=== PATIENT | male | born 1965 | race Caucasian/White ===

== ENCOUNTER 2017-07-17 06:18 | Day surgery (SDC) | payer OTHER ==
[2017-07-16 11:05] VITALS: BMI 33.2
--- NOTE | 2017-07-17 07:45 | HP ---
SHORT STAY HISTORY AND PHYSICAL DATE OF ADMISSION: 07/17/2017 HISTORY OF PRESENT ILLNESS: This is a 52-year-old male with history of colon polyps. The patient had a colonoscopy in 2017 and was found to have multiple large sessile polyps. . Colon polyps with high grade dysplasia. The patient comes in for colonoscopy because of the multiple colo n polyps and also showing high grade dysplasia . ALLERGIES: PENICILLIN. MEDICAL ILLNESSES: 1. Vitamin D deficiency. 2. Hyperlipidemia. 3. Seizure disorder. PHYSICAL EXAMINATION: VITAL SIGNS: Pulse is 70, blood pressure 130/80. HEENT: Conjunctivae clear. CARDIOVASCULAR SYSTEM AND LUNGS: Within normal limits. ABDOMEN: Soft to palpate. No organomegaly. No tenderness. No masses. ADMITTING DIAGNOSIS: Multiple colon polyps. PLAN: Colonoscopy.
--- NOTE | 2017-07-17 15:06 | OP ---
DATE OF SURGERY: 07/17/2017 OPERATIVE PROCEDURE: Colonoscopy with polypectomy. PREOPERATIVE DIAGNOSIS: A 52-year-old male with previous colonoscopy with polypectomy in 05/2016. The patient came in for a colonoscopy at that time for colon cancer screening. He was found to have multiple large sessile polyps in the colon, which were removed. One of the polyps was a anna lous adenoma. High grade dysplasia. The patient was brought back for a second-look colonoscopy, bec ause of the multiple large colon polyps. POSTOPERATIVE DIAGNOSES: 1. Hemorrhoids. 2. Sessile descending colon polyp, small. 3. Sessile sigmoid polyps x2 from previous polypectomy site. 4. Sessile rectal polyp. PROCEDURE NOTE: The patient was placed on his left lateral position and was given sedation by Anesth esia Department. A rectal exam was done before the scope was advanced into the rectum. No lesion fe lt on rectal exam. A [employer] video colonoscope was introduced into the rectum and advanced all the wa y into the cecum. The prep was very good. The mucosa appears normal. The appendiceal orifice, ileo cecal valve, cecum, no pathology seen. The ascending colon, hepatic flexure, transverse colon, splen ic flexure, no pathology seen. There is a small sessile polyp seen in the descending colon. The elham yp was removed with snare cautery with good hemostasis. There were two more small sessile polyps fro m previous polypectomy site were removed with snare cautery. Both were removed with snare cautery wi th good hemostasis. Another sessile rectal polyp removed with snare cautery with good hemostasis. R etroflexion of scope in the rectum showed hemorrhoids. DISCHARGE PLANNING: This is a 52-year-old male, who came for a colonoscopy because of prev ious colonoscopy with polypectomy. DISCHARGE RECOMMENDATIONS: 1. The patient advised to call me if he develops abdominal pain, hematochezia, or fever. 2. In the absence of any of the above symptoms, he will come back to me in 2 weeks.
[2017-07-17] MEDS ORDERED: PROPOFOL 200 MG/20 ML VIAL ONE (15:49)
== END 2017-07-17 10:07 | disposition home or self-care (01) ==
LOC: SDC 06:18
PROVIDERS: ATTEND Internal Medicine Gastroenterology
PROC: 0DBP8ZX Excision of Rectum, Via Natural or Artificial Opening Endoscopic, Diagnostic (ICD-10-PCS; principal; 2017-07-17)
PROC: 0DBM8ZX Excision of Descending Colon, Via Natural or Artificial Opening Endoscopic, Diagnostic (ICD-10-PCS; principal; 2017-07-17)
PROC: 0DBN8ZX Excision of Sigmoid Colon, Via Natural or Artificial Opening Endoscopic, Diagnostic (ICD-10-PCS; principal; 2017-07-17)
DX: Z12.11 Encounter for screening for malignant neoplasm of colon (principal); D12.4 Benign neoplasm of descending colon; D12.5 Benign neoplasm of sigmoid colon; K63.5 Polyp of colon; K64.9 Unspecified hemorrhoids; E55.9 Vitamin D deficiency, unspecified; E78.5 Hyperlipidemia, unspecified; G40.909 Epilepsy, unspecified, not intractable, without status epilepticus; Z79.899 Other long term (current) drug therapy; Z88.0 Allergy status to penicillin; Z98.890 Other specified postprocedural states
CPT/HCPCS: 88305; J2704

== ENCOUNTER 2021-07-16 08:44 | Emergency (ER) | payer OTHER, SELFPAY ==
[2021-07-16] MEDS ORDERED: Divalproex Sodium 250 MG (DR) TAB ONE (09:07)
[2021-07-16] MEDS ORDERED: Lorazepam 2 MG/ML VIAL ONE (10:10)
[2021-07-16 10:22] LABS: #Lymphocytes 1.8 thou/uL (1.20-3.40); #Monocytes 0.7 thou/uL (0.11-0.59); #Neutrophils 7.8 thou/uL (1.40-6.50); %Basophils 0.3 % (0.0-1.0); %Eosinophils 0.4 % (0.0-10.0); %Lymphocytes 17.5 % (21.0-51.0); %Monocytes 7.1 % (0.0-10.0); %Neutrophils 74.7 % (42.0-75.0); Hemoglobin 16.1 g/dL (14.0-18.0); Mean Corpuscular HGB CONC 34.4 g/dL (32.0-36.0); Mean Corpuscular Hemoglobin 31.5 pg (27.0-31.0); Mean Corpuscular Volume 91.7 fL (78.0-98.0); Mean Platelet Volume 7.7 fL (7.4-10.4); Platelet Count 248 thou/uL (130-400); RBC Distribution Width 11.5 % (11.5-14.5); Red Blood Cell (RBC) Count 5.11 mill/uL (4.70-6.10); White Blood Cell (WBC) Count 10.5 thou/uL (4.8-10.8)
[2021-07-16 10:53] LABS: ALT (SGPT) 43 U/L (8-55); AST (SGOT) 27 U/L (5-34); Albumin 4.3 g/dL (3.5-5.0); Alcohol Less than 10 mg/dL (Less than 10); Alkaline Phosphatase 60 U/L (40-110); Anion Gap 15 mmol/L (10-20); BUN (Urea Nitrogen) 12 mg/dL (8.4-25.7); Bilirubin, Total 0.3 mg/dL (0.2-1.2); Calc. Creatinine Clearance 0 mL/min (70-130); Calcium 9.1 mg/dL (7.8-10.44); Carbon Dioxide 21 mmol/L (22-29); Chloride 105 mmol/L (98-107); Globulin 3.2 g/dL (2.4-3.5); Glucose 121 mg/dL (70-105); Potassium 4.4 mmol/L (3.5-5.1); Protein, Total 7.5 g/dL (6.0-8.3); Sodium 137 mmol/L (136-145)
[2021-07-16] MEDS ORDERED: levETIRAcetam in NS 1,500 MG in Premix Bag 1 BAG IVPB SCH (11:00)
== END 2021-07-16 12:53 ==
LOC: ERS 08:44
DX: R56.9 Unspecified convulsions (principal); Z79.899 Other long term (current) drug therapy
CPT/HCPCS: 36415; 80053; 80307; 85025; 93005; 96365; 96375; J1953; J2060

== ENCOUNTER 2022-08-10 06:10 | Day surgery (SDC) | payer BC ==
[2022-08-09 11:39] VITALS: BMI 34.7
[2022-08-10] MEDS ORDERED: Lidocaine 1% PF 5 ML VIAL ONE (08:00)
[2022-08-10] MEDS ORDERED: PROPOFOL 200 MG/20 ML VIAL ONE (08:00)
== END 2022-08-10 09:30 | disposition home or self-care (01) ==
LOC: SDC 06:10
PROVIDERS: ATTEND Internal Medicine Gastroenterology
PROC: 0DBP8ZX Excision of Rectum, Via Natural or Artificial Opening Endoscopic, Diagnostic (ICD-10-PCS; principal; 2022-08-10)
PROC: 0DBK8ZX Excision of Ascending Colon, Via Natural or Artificial Opening Endoscopic, Diagnostic (ICD-10-PCS; principal; 2022-08-10)
PROC: 0DBL8ZX Excision of Transverse Colon, Via Natural or Artificial Opening Endoscopic, Diagnostic (ICD-10-PCS; principal; 2022-08-10)
PROC: 0DBN8ZX Excision of Sigmoid Colon, Via Natural or Artificial Opening Endoscopic, Diagnostic (ICD-10-PCS; principal; 2022-08-10)
PROC: 0DBM8ZX Excision of Descending Colon, Via Natural or Artificial Opening Endoscopic, Diagnostic (ICD-10-PCS; principal; 2022-08-10)
DX: Z12.11 Encounter for screening for malignant neoplasm of colon (principal); D12.2 Benign neoplasm of ascending colon; D12.3 Benign neoplasm of transverse colon; D12.4 Benign neoplasm of descending colon; D12.8 Benign neoplasm of rectum; K63.5 Polyp of colon; E78.5 Hyperlipidemia, unspecified; Z86.010 Personal history of colon polyps; Z87.891 Personal history of nicotine dependence; Z79.899 Other long term (current) drug therapy; Z88.0 Allergy status to penicillin
CPT/HCPCS: 88305; J2704

== ENCOUNTER 2025-02-28 12:25 | Inpatient (IN) | payer BC ==
[2025-02-28 13:16] LABS: #Basophils 0.05 10x3/uL (0.0-0.2); #Eosinophils 0.04 10x3/uL (0.0-0.7); #Monocytes 1.25 10x3/uL (0.11-0.59); #Neutrophils 4.31 10x3/uL (1.40-6.50); %Basophils 0.5 % (0.0-1.0); %Eosinophils 0.4 % (0.0-10.0); %Lymphocytes 46.8 % (21.0-51.0); %Monocytes 11.7 % (0.0-10.0); %Neutrophils 40.3 % (42.0-75.0); Hematocrit 45.5 % (42.0-52.0); Hemoglobin 14.6 g/dL (14.0-18.0); Mean Corpuscular Hemoglobin 29.4 pg (27.0-31.0); Mean Corpuscular Volume 91.7 fL (78.0-98.0); Platelet Count 261 10x3/uL (130-400); Red Blood Cell (RBC) Count 4.96 mill/uL (4.70-6.10); White Blood Cell (WBC) Count 10.68 10x3/uL (4.8-10.8)
[2025-02-28 13:25] LABS: ALT (SGPT) 13 U/L (Less than 45); AST (SGOT) 18 U/L (11-34); Albumin 3.8 g/dL (3.1-4.5); Alkaline Phosphatase 44 U/L (40-110); Anion Gap 16 mmol/L (10-20); BUN (Urea Nitrogen) 13 mg/dL (8.4-25.7); Bilirubin, Total 0.4 mg/dL (0.3-1.2); Calc. Creatinine Clearance 0 mL/min (70-130); Calcium 9.0 mg/dL (7.8-10.44); Carbon Dioxide 25 mmol/L (22-29); Chloride 103 mmol/L (98-107); Globulin 2.9 g/dL (2.4-3.5); Glucose 98 mg/dL (70-105); Potassium 4.0 mmol/L (3.5-5.1); Sodium 140 mmol/L (136-145)
[2025-02-28 13:41] LABS: Bacteria/HPF None Seen HPF (None Seen); CAUTI Indications for Culture Dysuria,urgency,freq; Glucose, Urine (Dipstick) Normal (Negative); Leukocyte Negative Leu/uL (Negative); Protein, Urine (Dipstick) Negative (Neg-Trace); RBC/HPF 0-3 HPF (0-3); Specific Gravity, Urine 1.019 (1.002-1.036); WBC/HPF 0-3 HPF (0-3)
[2025-02-28 13:54] LABS: Urine Culture Reflex No No
[2025-02-28] MEDS ORDERED: Ondansetron PF 4 MG/2 ML Vial IVP PRN (16:33)
[2025-02-28] MEDS ORDERED: Ketorolac Tromethamine 30 MG (1 mL) VIAL IVP PRN (16:45)
[2025-02-28 17:44] VITALS: BMI 32.1
[2025-02-28] MEDS: Divalproex Sodium 500 MG ER.TAB PO SCH (20:59)
[2025-03-01 05:12] LABS: Hematocrit 37.9 % (42.0-52.0); Hemoglobin 12.5 g/dL (14.0-18.0); Mean Corpuscular Hemoglobin 30.0 pg (27.0-31.0); Mean Corpuscular Volume 90.9 fL (78.0-98.0); Platelet Count 220 10x3/uL (130-400); Red Blood Cell (RBC) Count 4.17 mill/uL (4.70-6.10); White Blood Cell (WBC) Count 10.11 10x3/uL (4.8-10.8)
[2025-03-01 05:16] LABS: ALT (SGPT) 11 U/L (Less than 45); AST (SGOT) 21 U/L (11-34); Albumin 2.9 g/dL (3.1-4.5); Alkaline Phosphatase 36 U/L (40-110); Anion Gap 14 mmol/L (10-20); BUN (Urea Nitrogen) 10 mg/dL (8.4-25.7); Bilirubin, Total 0.4 mg/dL (0.3-1.2); Calc. Creatinine Clearance 163 mL/min (70-130); Calcium 8.5 mg/dL (7.8-10.44); Carbon Dioxide 25 mmol/L (22-29); Chloride 106 mmol/L (98-107); Globulin 2.4 g/dL (2.4-3.5); Glucose 86 mg/dL (70-105); Magnesium 1.9 mg/dL (1.6-2.6); Potassium 4.1 mmol/L (3.5-5.1); Sodium 141 mmol/L (136-145)
[2025-03-01 05:47] LABS: Platelet Adequacy Comment Platelets Normal; RBC Morphology Within Normal Limits; Smudge Cells 24.0 %
[2025-03-01] MEDS: Lansoprazole 30 MG/10 ML UDCUP PO SCH (09:35)
[2025-03-01] MEDS ORDERED: Iopamidol-370 76% 500 ML MDV (1 ML CHARGE) ONE (09:56)
[2025-03-01] MEDS: Senokot S 8.6-50 MG TAB PO SCH ×2 (11:16→20:15)
[2025-03-02 05:21] LABS: Hematocrit 41.2 % (42.0-52.0); Hemoglobin 13.7 g/dL (14.0-18.0); Mean Corpuscular Hemoglobin 30.2 pg (27.0-31.0); Mean Corpuscular Volume 90.9 fL (78.0-98.0); Platelet Count 217 10x3/uL (130-400); Red Blood Cell (RBC) Count 4.53 mill/uL (4.70-6.10); White Blood Cell (WBC) Count 10.69 10x3/uL (4.8-10.8)
[2025-03-02 05:28] LABS: Anion Gap 13 mmol/L (10-20); BUN (Urea Nitrogen) 7 mg/dL (8.4-25.7); Calc. Creatinine Clearance 181 mL/min (70-130); Calcium 8.9 mg/dL (7.8-10.44); Carbon Dioxide 27 mmol/L (22-29); Chloride 105 mmol/L (98-107); Glucose 85 mg/dL (70-105); Potassium 3.8 mmol/L (3.5-5.1); Sodium 141 mmol/L (136-145)
[2025-03-02] MEDS: Acetaminophen 325 MG TAB PO PRN (05:37)
[2025-03-02 05:55] LABS: Platelet Adequacy Comment Platelets Normal
[2025-03-02 11:06] LABS: INR-International Normal Ratio 1.1; PTT 28.6 sec (22.9-36.1); Prothrombin Time 14.5 sec (12.0-14.7)
[2025-03-02] MEDS ORDERED: Sodium Bicarbonate 2.5 MEQ/5 ML SDV ONE (11:28)
[2025-03-02] MEDS ORDERED: Lidocaine 1% w/Epinephrine 1:100K 20 ML VIAL ONE (11:28)
[2025-03-02 14:01] LABS: RBC Count-Automated (BF) 2738 /cu.mm; WBC/Nucleated-Auto (BF) 262 /cu.mm
[2025-03-02 14:37] LABS: BF Segmented Neutrophils 1 %; Cell Count Non Hematic 39 %
[2025-03-03 05:38] LABS: #Basophils 0.06 10x3/uL (0.0-0.2); #Eosinophils 0.08 10x3/uL (0.0-0.7); #Monocytes 0.76 10x3/uL (0.11-0.59); #Neutrophils 3.05 10x3/uL (1.40-6.50); %Basophils 0.6 % (0.0-1.0); %Eosinophils 0.8 % (0.0-10.0); %Lymphocytes 61.6 % (21.0-51.0); %Monocytes 7.3 % (0.0-10.0); %Neutrophils 29.4 % (42.0-75.0); Anion Gap 14 mmol/L (10-20); BUN (Urea Nitrogen) 7 mg/dL (8.4-25.7); Calc. Creatinine Clearance 181 mL/min (70-130); Calcium 8.8 mg/dL (7.8-10.44); Carbon Dioxide 26 mmol/L (22-29); Chloride 107 mmol/L (98-107); Glucose 95 mg/dL (70-105); Hematocrit 38.9 % (42.0-52.0); Hemoglobin 12.9 g/dL (14.0-18.0); Mean Corpuscular Hemoglobin 29.8 pg (27.0-31.0); Mean Corpuscular Volume 89.8 fL (78.0-98.0); Platelet Count 236 10x3/uL (130-400); Potassium 3.8 mmol/L (3.5-5.1); Red Blood Cell (RBC) Count 4.33 mill/uL (4.70-6.10); Sodium 143 mmol/L (136-145); White Blood Cell (WBC) Count 10.37 10x3/uL (4.8-10.8)
[2025-03-03 06:11] LABS: Burr Cells SLIGHT = 2-5 cells HPF (0-1); Platelet Adequacy Comment Platelets Normal; Smudge Cells 36.0 %
[2025-03-03 09:03] VITALS: BP 113/77; TEMP 98.4
== END 2025-03-03 13:06 | disposition home or self-care (01) | DRG 389 ==
LOC: SUATTDRO 12:25 → ERS 12:25 → SURG B 16:14
PROVIDERS: ADMIT Family Medicine; ATTEND Internal Medicine
PROC: 0W9G3ZZ Drainage of Peritoneal Cavity, Percutaneous Approach (ICD-10-PCS; principal; 2025-03-02)
DX: K56.600 Partial intestinal obstruction, unspecified as to cause (principal); C48.2 Malignant neoplasm of peritoneum, unspecified; C91.10 Chronic lymphocytic leukemia of B-cell type not having achieved remission; K92.1 Melena; R18.8 Other ascites; G40.909 Epilepsy, unspecified, not intractable, without status epilepticus; Z79.899 Other long term (current) drug therapy
CPT/HCPCS: 36415; 49083; 71260; 74177; 80048; 80053; 81001; 82378; 83735; 85025; 85060; 85610; 85730; 86301; 86304; 88112; 89051; 99285; J7120; Q9967

== ENCOUNTER 2025-03-25 13:09 | Inpatient (IN) | payer BC ==
[2025-03-25 14:22] LABS: #Basophils 0.05 10x3/uL (0.0-0.2); #Eosinophils 0.03 10x3/uL (0.0-0.7); #Monocytes 1.24 10x3/uL (0.11-0.59); #Neutrophils 6.35 10x3/uL (1.40-6.50); %Basophils 0.4 % (0.0-1.0); %Eosinophils 0.3 % (0.0-10.0); %Lymphocytes 32.8 % (21.0-51.0); %Monocytes 10.8 % (0.0-10.0); %Neutrophils 55.3 % (42.0-75.0); Hematocrit 44.7 % (42.0-52.0); Hemoglobin 14.6 g/dL (14.0-18.0); Mean Corpuscular Hemoglobin 28.9 pg (27.0-31.0); Mean Corpuscular Volume 88.3 fL (78.0-98.0); Platelet Count 441 10x3/uL (130-400); Red Blood Cell (RBC) Count 5.06 mill/uL (4.70-6.10); White Blood Cell (WBC) Count 11.49 10x3/uL (4.8-10.8)
[2025-03-25 14:40] LABS: ALT (SGPT) 12 U/L (Less than 45); AST (SGOT) 19 U/L (11-34); Albumin 2.9 g/dL (3.1-4.5); Alkaline Phosphatase 46 U/L (40-110); Anion Gap 13 mmol/L (10-20); BUN (Urea Nitrogen) 19 mg/dL (8.4-25.7); Bilirubin, Total 0.3 mg/dL (0.3-1.2); Calc. Creatinine Clearance 0 mL/min (70-130); Calcium 9.2 mg/dL (7.8-10.44); Carbon Dioxide 30 mmol/L (22-29); Chloride 98 mmol/L (98-107); Globulin 2.9 g/dL (2.4-3.5); Glucose 107 mg/dL (70-105); Potassium 4.0 mmol/L (3.5-5.1); Sodium 137 mmol/L (136-145)
[2025-03-25] MEDS ORDERED: Guaifenesin DM 100-10/5 ML UDCUP PO PRN (19:25)
[2025-03-25] MEDS ORDERED: Melatonin 3 MG TAB PO PRN (19:25)
[2025-03-25] MEDS ORDERED: Ondansetron PF 4 MG/2 ML Vial IVP PRN (19:25)
[2025-03-25] MEDS ORDERED: Acetaminophen 325 MG TAB PO PRN (19:25)
[2025-03-25] MEDS ORDERED: Electrolyte Replacement Protocol 1 EACH FS SCH (19:30)
[2025-03-25] MEDS ORDERED: PHOS-NAK 1 PKT PACK PO PRN (19:45)
[2025-03-25] MEDS ORDERED: Potassium Chloride 20 MEQ in Premix 1 BAG IVPB PRN (19:45)
[2025-03-25] MEDS ORDERED: Magnesium Sulfate In Water 4 GM in Premix 1 BAG IVPB PRN (19:45)
[2025-03-25] MEDS: Famotidine 20 MG TAB PO SCH (22:39)
[2025-03-26] MEDS: Bisacodyl 10 MG SUPP PR SCH (00:05)
[2025-03-26 05:06] LABS: ALT (SGPT) Less than 7 U/L (Less than 45); AST (SGOT) 16 U/L (11-34); Albumin 2.3 g/dL (3.1-4.5); Alkaline Phosphatase 35 U/L (40-110); Anion Gap 10 mmol/L (10-20); BUN (Urea Nitrogen) 17 mg/dL (8.4-25.7); Bilirubin, Total 0.2 mg/dL (0.3-1.2); Calc. Creatinine Clearance 164 mL/min (70-130); Calcium 8.2 mg/dL (7.8-10.44); Carbon Dioxide 28 mmol/L (22-29); Chloride 102 mmol/L (98-107); Globulin 2.4 g/dL (2.4-3.5); Glucose 100 mg/dL (70-105); Potassium 3.7 mmol/L (3.5-5.1); Sodium 136 mmol/L (136-145)
[2025-03-26 05:28] LABS: Hematocrit 37.1 % (42.0-52.0); Hemoglobin 12.6 g/dL (14.0-18.0); Mean Corpuscular Hemoglobin 30.0 pg (27.0-31.0); Mean Corpuscular Volume 88.3 fL (78.0-98.0); Platelet Count 325 10x3/uL (130-400); Red Blood Cell (RBC) Count 4.20 mill/uL (4.70-6.10); White Blood Cell (WBC) Count 10.23 10x3/uL (4.8-10.8)
[2025-03-26 05:44] LABS: Platelet Adequacy Comment Platelets Normal
[2025-03-26] MEDS: Divalproex Sodium DR 500 MG TAB PO SCH (09:30)
[2025-03-26] MEDS: Enoxaparin 40 MG (0.4 mL) SYRINGE SC SCH (10:27)
[2025-03-26 16:14] VITALS: BP 108/72; TEMP 97.9
[2025-03-28] MEDS ORDERED: FLU (Fluarix Triv) 25-26 (6MOS UP)/PF 45 MCG/0.5 ML Syringe IM ONE (09:00)
== END 2025-03-26 16:47 | disposition home or self-care (01) | DRG 392 ==
LOC: ERS 13:09 → SURG A 20:06
PROVIDERS: ADMIT Internal Medicine; ATTEND Internal Medicine
DX: K52.9 Noninfective gastroenteritis and colitis, unspecified (principal); C78.6 Secondary malignant neoplasm of retroperitoneum and peritoneum; K56.7 Ileus, unspecified; E78.5 Hyperlipidemia, unspecified; Z98.890 Other specified postprocedural states; Z88.0 Allergy status to penicillin; Z79.899 Other long term (current) drug therapy
CPT/HCPCS: 36415; 71045; 74177; 80053; 83036; 83605; 85025; 87040; J7042

== ENCOUNTER 2025-03-30 08:49 | Day surgery (SDC) | payer BC ==
[2025-03-29 14:20] VITALS: BMI 31.0
[2025-03-30] MEDS ORDERED: Lidocaine 1% PF 5 ML VIAL ONE (10:02)
[2025-03-30] MEDS ORDERED: PROPOFOL 20 ML ONE (10:02)
[2025-03-30] MEDS ORDERED: Bupivacaine 0.25% HCL 30 ML VIAL ONE (10:58)
[2025-03-30] MEDS ORDERED: Ondansetron PF 4 MG/2 ML Vial ONE (11:23)
[2025-03-30] MEDS ORDERED: CEFAZOLIN 1 GM VIAL ONE (11:25)
== END 2025-03-30 13:50 | disposition designated cancer center or children's hospital (05) ==
LOC: SDC 08:49
PROVIDERS: ATTEND Surgery
PROC: 0JH60WZ Insertion of Totally Implantable Vascular Access Device into Chest Subcutaneous Tissue and Fascia, Open Approach (ICD-10-PCS; principal; 2025-03-30)
DX: C78.6 Secondary malignant neoplasm of retroperitoneum and peritoneum (principal); C91.10 Chronic lymphocytic leukemia of B-cell type not having achieved remission; K66.8 Other specified disorders of peritoneum; E78.2 Mixed hyperlipidemia; G40.909 Epilepsy, unspecified, not intractable, without status epilepticus; H91.93 Unspecified hearing loss, bilateral; Z86.0101 Personal history of adenomatous and serrated colon polyps; Z88.0 Allergy status to penicillin; Z79.899 Other long term (current) drug therapy
CPT/HCPCS: 71045; C1788; J0169; J0665; J0690; J1642; J2405; J2704; J3010